=== PATIENT | female | born 1955 | race Asian ===

== ENCOUNTER 2022-11-04 14:18 | Emergency (ER) | payer MEDICARE, MEDICAID ==
[~2022-11-04] VITALS: Ht 149.9 cm; Wt 61.4 kg
[2022-11-04 14:21] VITALS: BP 146/76
[2022-11-04] MEDS ORDERED: PANT-31 PO (14:32)
[2022-11-04] MEDS ORDERED: AMLO-257 PO (14:32)
[2022-11-04] MEDS ORDERED: MELO-381 PO (14:32)
[2022-11-04 14:41] LABS: COVID AG,FIA SOURCE NASAL SWAB
[2022-11-04] MEDS ORDERED: ACETAMINOPHEN 500 MG TABLET PO ONE (15:00)
[2022-11-04 15:03] LABS: INFLUENZA TYPE A NEGATIVE FOR TYPE A (NEGATIVE); INFLUENZA TYPE B NEGATIVE FOR TYPE B (NEGATIVE)
[2022-11-04 15:08] LABS: RAPID GROUP A STREP NEGATIVE (NEGATIVE)
[2022-11-04] MEDS ORDERED: ACET-66 PO (15:42)
== END 2022-11-04 16:07 | disposition home or self-care (01) ==
LOC: EMS 14:27
DX: U07.1 COVID-19 (principal); J06.9 Acute upper respiratory infection, unspecified; E78.00 Pure hypercholesterolemia, unspecified; I10 Essential (primary) hypertension
CPT/HCPCS: 87430; 87804; 99283